=== PATIENT | female | born 1990 | race Caucasian/White ===

== ENCOUNTER 2024-05-17 09:43 | Outpatient (CLI) | payer BC, SELFPAY ==
--- OUTSIDE RECORDS SUMMARY | 2024-05-17 09:48 | XMS_ITS | Referral Summary ---
Author Organization [place] Address [address] [facility] [place] [address] Care Team Providers Care Osteologist Name Role Phone [facility] Primary Care Provider Allergies No known active allergies Medications Medication Sig Dispensed Refills Start Date End Date Status escitalopram (LEXAPRO) 20 MG tablet Take 20 mg by mouth daily Active fluticasone (FLONASE) 50 MCG/ACT nasal spray [place] 1 spray into both nostrils daily 16 g 03/22/2019 Active Social History Tobacco Use Types Packs/Day Years Used Date Smoking Tobacco: Never Assessed Adolescent Education Answer Date Record ed Getting School Help Needed Not on file 07/16 Sex and Gender Information Value Date Recorded Sex Assigned at Not on file Gender Identity Not on file Sexual Orientation Not on file Last Filed Vital Signs Vital Sign Reading Time Taken Comments Blood Pressure 120/77 03/22/2019 2:13 PM CDT Pulse 89 03/22/2019 2:13 PM CDT Temperature 37.1 ??C (98.8 ??F) 03/22/2019 2:13 PM CD T Respiratory Rate - - Oxygen Saturation 98% 03/22/2019 2:13 PM CDT Inhaled Oxygen Concentration - - Weight - - Height - - Body Mass Index - - Plan of Treatment Not on file Care Teams Osteologist Relationship Specialty Start Date End Date [facility] [address] [place] [address] PCP - General 03/22/19
--- OUTSIDE RECORDS SUMMARY | 2024-05-17 09:48 | XMS_ITS | Clinical Summary ---
Author Organization [place] Address [address] [facility] [place] [address] Care Team Providers Care Revenue Enforcement Collection Agent Name Role Phone [facility] Primary Care Provider Allergies No known active allergies Medications Medication Sig Dispensed Refills Start Date End Date Status escitalopram (LEXAPRO) 20 MG tablet Take 20 mg by mouth daily Active fluticasone (FLONASE) 50 MCG/ACT nasal spray [place] 1 spray into both nostrils daily 16 [...] of Treatment Not on file Care Teams Revenue Enforcement Collection Agent Relationship Specialty Start Date End Date [facility] [address] [place] [address] PCP - General 03/22/19
== END 2024-05-17 09:44 | disposition home or self-care (01) ==
PROVIDERS: PCP Internal Medicine; Visit Provider Internal Medicine
DX: Z01.818 Encounter for other preprocedural examination (principal); Z13.6 Encounter for screening for cardiovascular disorders; Z13.9 Encounter for screening, unspecified
CPT/HCPCS: 80053; 80061

== ENCOUNTER 2024-05-30 06:52 | Day surgery (SDC) | payer BC, SELFPAY ==
[2024-05-30] VITALS (12 sets, daily range): BP systolic 84–134; BP diastolic 46–112; PULSE 64–105; RESP 14–18; TEMP 36.3–36.6; O2SAT 93–99; BMI 38.5
--- OUTSIDE RECORDS SUMMARY | 2024-05-30 06:54 | XMS_ITS | Clinical Summary ---
Author Organization [place] Address [address] [facility] [place] [address] Care Team Providers Care Horticultural Specialty Grower Name Role Phone Replaced By [facility] Primary Care Provider Allergies No known active allergies Medications Medication Sig Dispensed Refills Start Date End Date Status escitalopram (LEXAPRO) 20 MG tablet Take 20 mg by mouth daily Active fluticasone (FLONASE) 50 MCG/ACT nasal spray [place] 1 spray into both nostrils daily 16 [...] of Treatment Not on file Care Teams Horticultural Specialty Grower Relationship Specialty Start Date End Date Replaced By [facility] [address] [place] [address] PCP - General 03/22/19
--- OUTSIDE RECORDS SUMMARY | 2024-05-30 06:54 | XMS_ITS | Referral Summary ---
Author Organization [place] Address [address] [facility] [place] [address] Care Team Providers Care Fitter / Welder Name Role Phone [facility] Primary Care Provider Allergies No known active allergies Medications Medication Sig Dispensed Refills Start Date End Date Status escitalopram (LEXAPRO) 20 MG tablet Take 20 mg by mouth daily Active fluticasone (FLONASE) 50 MCG/ACT nasal spray [place] 1 spray into both nostrils daily 16 [...] of Treatment Not on file Care Teams Fitter / Welder Relationship Specialty Start Date End Date [facility] [address] [place] [address] PCP - General 03/22/19
[2024-05-30 07:17] LABS: Ur HCG Qualitative* Negative (Negative)
[2024-05-30 07:18] LABS: Hemoglobin* 13.8 gm/dL (12.0-16.0)
[2024-05-30] MEDS: LACTATED RINGERS 1000 ML 1,000 ML 100 ML IV (07:30)
[2024-05-30] MEDS: SODIUM CHLORIDE 0.9 % (FLUSH) 10 ML SYRINGE IVF (07:31)
[2024-05-30] MEDS: BUPIVACAINE 0.25 %/EPI 1:200K 30 ml INJECTION (10:30)
--- NOTE | 2024-05-30 10:45 | W.ANESCHARGE ---
Anesthesia Charges Start Date/Time Anesthesia Start Date: 05/30/24 Anesthesia Start Time: 09:49 Stop Date/Time Anesthesia Stop Date: 05/30/24 Anesthesia Stop Time: 10:58
--- NOTE | 2024-05-30 10:46 | P.GYNPRC_ITS ---
Procedure Note Time Seen by Provider: 10:54 Date of procedure: 05/30/24 Will [facility] bill your pro fee for this procedure?: Yes Pre-op diagnosis: Undesired fertility Procedure: Laparoscopic bilateral salpingectomy IUD removal Anesthesia: GETA Complications: None Surgeon: Wendy Rosenthal MD Estimated blood loss (mL): 5 IV fluids (mL): 700 Urine Output (mL): 100 Pathology: specimen obtained, sent to pathology Condition: stable Disposition: same day Findings: IUD strings easily visualized Intact IUD noted upon removal Unremarkable upper abdominal anatomy Pelvic anatomy reveals normal uterus and bilateral ovaries Bilateral fallopian tubes notable for small, fluid-filled paratubal cysts Procedure Description: Patient was taken to the operating room with IV running. She was positioned in dorsal lithotomy position with her legs fully supported in [place] stirrups. General anesthesia was administered. She was prepped and draped in the usual sterile fashion. A surgical time out was held to confirm patient and procedure. A 5 mm infraumbilical incision was made with a scalpel and carried down to the underlying layer of fascia with the hemostat. 5 mm camera was placed within the 5 mm Fios Kii trocar, and advanced under direct visualization through the anterior abdominal wall into the peritoneal cavity, while tenting up the anterior abdominal wall. The trocar was removed. The balloon was inflated, holding the port in place. Pneumoperitoneum was achieved. Careful attention was paid below site of entry - no injury or bleeding noted. Upper abdominal survey was completed, revealing normal anatomy. Patient was put into Trendelenburg, pelvic survey noted normal uterus, bilateral fallopian tubes and ovaries. Bilateral benign appearing paratubal cysts were noted. Two additional port sites were created, first in the left lower quadrant 2cm superior and medial to the ASIS. 5mm skin incision was made and trocar advanced under direct visualization with rotation and gentle pressure. Careful attention was paid to avoid the inferior epigastric vessels, superficial skin vasculature and the bowel on entry. Obturator removed, balloon inflated. The same procedure was completed with a left paramedial port midway between the LLQ and umbilical ports. Attention was first turned to the right fallopian tube, which was sequentially ligated and transected from the mesosalpinx using the Ligasure cautery device. We proceeded from the fimbriated end, lateral to medial, and the tube was amputated at the right uterine cornua. Specimen was attempted to be removed intact through port, but ultimately into three discrete pieces. The fi rst was the proximal tube, second was distal tube and third was a cluster of paratubal cysts at the fimbriated end. Careful attention assured all parts of the right tube were removed. The same procedure was repeated on the patient's left side, and the left fallopian tube was also amputated at the cornua and removed from the patient's abdomen intact. Both fallopian tubes were sent for pathologic evaluation, where we specified the left tube was intact and right was transected. Survey of the pelvis revealed excellent hemostasis. Procedure was deemed complete. The balloons of all port sites were deflated, and all ports were removed after pneumoperitoneum was released. Local anesthetic (Marcaine) was infiltrated in the subcutaneous tissue at each port site, total 10cc. The skin of each port site was closed in a subcuticular fashion with 3-0 Monocryl. Surgical glue was applied above this. Russell catheter removed. Patient tolerated procedure well and was taken to recovery area in stable condition. EBL 5 mL, UOP 100 mL, IVF 700 mL. Confirmed specimens sent to pathology.
--- NOTE | 2024-05-30 11:28 | SUR.PHASEI ---
patient meets pacu d/c criteria
[2024-05-30] MEDS: LACTATED RINGERS 1000 ML 1,000 ML 30 ML IV (11:49)
== END 2024-05-30 12:43 | disposition home or self-care (01) ==
LOC: OR 06:53
PROVIDERS: PCP Internal Medicine; Visit Provider Obstetrics & Gynecology
PROC: (CPT 58661; principal; 2024-05-30 09:30)
DX: Z30.2 Encounter for sterilization (principal); N83.8 Other noninflammatory disorders of ovary, fallopian tube and broad ligament
CPT/HCPCS: 58661; 00840; 36415; 81025; 85018; 86850; 86900; 86901; 88302; A4344; J0330; J1100; J1885; J2250; J2405; J2704; J3010; J3490; J7120